=== PATIENT | female | born 1975 | race African-American/Black ===

== ENCOUNTER 2017-05-02 07:12 | Emergency (ER) | payer OTHER ==
[~2017-05-02] VITALS: Ht 149.9 cm; Wt 70.0 kg
[~2017-05-02 07:12] MED LIST: BACT800T5 PO; DIFL150T PO; DOXY100T PO; RISP.25 PO; TRAZ50TA4 PO
[2017-05-02 07:21] VITALS: BP 132/80; PULSE 72; RESP 16; TEMP 98.7; O2SAT 98
--- NOTE | 2017-05-02 08:00 | PD ---
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 She reports the patient was in a wheelchair and pushed her back. She denies any bony pain. She reports pain when she moves her shoulder and when she deep breathes. She has full range of motion on her left upper extremity. There are no other injuries reported. [facility] Past Medical History Depression: Yes Diminished Hearing: No Tetanus Vaccination: Unknown ?: Not : 6 Para: 4 Miscarriage: 2 : 0 Tubal Ligation: Yes Social History Alcohol Use: Yes (occassional) Tobacco Use: No Substance Use: No Allergies-Medications (Allergen,Severity, Reaction): Coded Allergies: No Known Allergies (Verified , 05/02/17) Reported Meds & Prescriptions Reported Meds & Active Scripts Active No Active Prescriptions or Reported Medications Review of Systems Except as stated in HPI: all other systems reviewed are Neg HENT: No: Headaches, Neck Stiffness, Neck Pain Musculoskeletal: Positive: Myalgias, Pain (left posterior shoulder and trapezius subscapular area.), No: Weakness Neurologic: No: Headache, Paresthesia, Sensory Disturbance Physical Exam Narrative GENERAL: Well-nourished, well-developed patient, in no acute respiratory distress. SKIN: Focused skin assessment warm/dry. HEAD: Normocephalic/atraumatic. EYES: No scleral icterus. No injection or drainage. NECK: Supple, trachea midline. MUSCULOSKELETAL: On examination the patient's left shoulder, she has full range of motion. She has subjective tenderness in her left trapezius distribution. She also has subjective tenderness in her posterior deltoid of her left shoulder. There is no bony injury. There is no deformity. BACK: Nontender without obvious deformity. No CVA tenderness. NEUROLOGICAL: Awake and alert. Cranial nerves II through XII intact. Motor grossly within normal limits. Five out of 5 muscle strength in all muscle groups. Normal speech. Data Data Last Documented VS Vital Signs Date Time Temp Pulse Resp B/P (MAP) Pulse Ox O2 Delivery O2 Flow Rate FiO2 05/02/17 07:21 98.7 72 16 132/80 (97) 98 Room Air MDM Medical Decision Making Medical Screen Exam Complete: Yes Emergency Medical Condition: Yes Differential Diagnosis Muscular strain versus acute bony injury versus shoulder dislocation Narrative Course 41-year-old female presents 1 day after she reportedly strained her left shoulder. 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 She states that the patient pushed her backwards. There is no reported fall. She reports pain today in her left trapezius distribution and left posterior deltoid. She has full range of motion. There is no bony pain. This is likely muscular strain. There is no indication for x-ray at this time. She'll be given a prescription for Naprosyn and told to ice 24 hours then use moist heat. She'll follow up with Workmen's Comp. physician as needed. Diagnosis Primary Impression: Strain of left trapezius muscle Additional Impression: Strain of left deltoid muscle Additional Instructions: Ice 24 hours, then moist heat. Avoid heavy lifting until seen and cleared by workman's comp physician. Scripts Naproxen DR (Naproxen EC) 375 Mg Tabdr 375 MG PO BID for 7 Days, #14 TAB 0 Refills Prov: Theodore Herrera MD 05/02/17 Disposition: 01 DISCHARGE HOME Condition: Stable Theodore Herrera MD May 02, 2017 08:00
[2017-05-02] MEDS ORDERED: NAPR-239 PO (08:01)
== END 2017-05-02 08:43 | disposition home or self-care (01) ==
LOC: NEPC 07:12
DX: S46.812A Strain of other muscles, fascia and tendons at shoulder and upper arm level, left arm, initial encounter (principal); F32.9 Major depressive disorder, single episode, unspecified; Y93.F9 Activity, other caregiving
CPT/HCPCS: 99283

== ENCOUNTER 2017-06-19 11:23 | Emergency (ER) | payer OTHER ==
[~2017-06-19 11:23] MED LIST changes: -BACT800T5 PO; -DIFL150T PO; -DOXY100T PO; +NAPR375T4 PO; -RISP.25 PO; -TRAZ50TA4 PO
[2017-06-19 11:26] VITALS: BP 142/90; PULSE 74; RESP 22; TEMP 98.7; O2SAT 99
[2017-06-19] MEDS ORDERED: CARB6.5S5 EACH EAR (12:01)
--- NOTE | 2017-06-19 12:02 | PD ---
HPI Chief Complaint: left ear pain Time Seen by Provider: 11:48 Travel History International Travel<30 days: Yes Contact w/Intl Traveler<30days: Yes History of Present Illness HPI 42-year-old woman presents emergent from of left ear pain. States she has decreased hearing, pain in the ear for couple days. She's not had trouble with it before. No cough cold some spread no fevers. No other complaints. History Past Medical History Medical History: Denies Significant Hx : 6 Para: 4 Social History Alcohol Use: Yes (occassional) Tobacco Use: No Allergies-Medications (Allergen,Severity, Reaction): Coded Allergies: No Known Allergies (Verified , 05/02/17) Reported Meds & Prescriptions Reported Meds & Active Scripts Active Naproxen EC (Naproxen) 375 Mg Tabdr 375 Mg PO BID 7 Days Review of Systems General / Constitutional: No: Fever, Chills HENT: No: Headaches, Vertigo, Lightheadedness Physical Exam Narrative Gen.: Well 42-year-old woman HEENT: Focus exam of the left ear shows impacted cerumen against the left ear, there is no bulging, tenderness with traction on the tragus, drainage from the ear, or other abnormality. Data Data Last Documented VS Vital Signs Date Time Temp Pulse Resp B/P (MAP) Pulse Ox O2 Delivery O2 Flow Rate FiO2 06/19/17 11:26 98.7 74 22 142/90 (107) 99 MDM Medical Decision Making Medical Screen Exam Complete: Yes Emergency Medical Condition: Yes Differential Diagnosis Impacted cerumen, foreign body, otitis externa Narrative Course Medical decision-making new para 42-year-old woman with a packed in cerumen, disimpacted some. Uncomfortable for the bedside. Recommend Karsten Aceves's, outpatient follow-up. Procedures Procedure Narrative Procedure note: Disimpacted cerumen in the left ear. Patient tolerated well. Diagnosis Primary Impression: Impacted cerumen of left ear Additional Instructions: Use Karsten Aceves says prescribed. Up with her primary doctor. Return to the emergency department for any new or worsening symptoms. Med/Other Pt SpecificInfo: Prescription(s) given Scripts Carbamide Peroxide Otic Drops (Debrox Otic Drops) 6.5% Soln 5-10 DROP EACH EAR BID Y for Ear Wax Removal, #1 BOTTLE 0 Refills up to 4 days. Prov: Fernando Greenwood MD 06/19/17 Disposition: 01 DISCHARGE HOME Condition: Stable Fernando Greenwood MD Jun 19, 2017 12:01
== END 2017-06-19 12:21 | disposition home or self-care (01) ==
LOC: NEPK 11:23
DX: H61.22 Impacted cerumen, left ear (principal)
CPT/HCPCS: 69210